=== PATIENT | female | born 1980 | race American Indian/Alaskan Native ===

== ENCOUNTER 2017-07-28 19:24 | Emergency (ER) | payer OTHER ==
[2017-07-28 19:54] VITALS: BP 118/58
--- NOTE | 2017-07-28 21:58 | Emergency Department Report ---
Chief Complaint: Sore Throat Stated Complaint: SORE THROAT; H/A Time Seen by Provider: 07/28/17 21:39 - HPI History of Present Illness: Patient is a 36-year-old My female who is presenting with sore throat. Patient states that she's had swelling to her tonsils and glands for the past 2 days. Patient denies fever states that she is able to eat and drink. 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 Patient states that the pain is aching throbbing and is a 5 out of 10 in severity - ROS Review of Systems: Review of systems negative except for those illness in HPI - Exam Vital Signs: Vital Signs 07/28/17 19:50 Temperature 99.5 F Pulse Rate 94 H Respiratory 18 Rate Blood Pressure 118/58 O2 Sat by Pulse 98 Oximetry Physical Exam: Focused physical exam patient has tonsillar swelling with exudate as well as some white plaque on the tongue consistent with thrush patient has a large anterior cervical lymph nodes the uvula is midline there are petechiae on her palate. Patient's heart tones are normal. Lungs are clear to auscultation. Abdomen soft nontender. Patient is afebrile alert and oriented 3 in no acute distress MSE screening note: Focused history and physical exam performed. Due to findings the following was ordered: ED Medical Decision Making - Medical Decision Making Patient will be given a shot of Bicillin as well as a shot of Decadron will be discharged home. ED Disposition for MSE Clinical Impression: Exudative pharyngitis, Thrush Disposition: TO HOME OR SELFCARE Is pt being admited?: No Does the pt Need Aspirin: No Condition: Good Instructions: Strep Throat (ED) Prescriptions: HYDROcodone/APAP 7.5-325 [[place]] 15 ml PO Q4HR PRN #120 oz PRN Reason: Pain Nystatin 100,000 unit PO TID 7 Days oral.susp Referrals: PRIMARY CARE, [Primary Care Provider] - 3-5 Days Forms: Work/School Release Form(ED)
[2017-07-28] MEDS ORDERED: BICILLIN L-A IM ONE ×2 (22:03→22:06)
[2017-07-28] MEDS ORDERED: DECADRON IM ONE (22:03)
[2017-07-28] MEDS ORDERED: DECADRON ONE (22:06)
== END 2017-07-28 22:41 | disposition home or self-care (01) ==
LOC: ED 19:24
DX: J02.9 Acute pharyngitis, unspecified (principal); B37.9 Candidiasis, unspecified
CPT/HCPCS: 96372; 99282; J0561; J1100